=== PATIENT | male | born 1995 | race Caucasian/White ===

== ENCOUNTER 2017-09-20 10:13 | Emergency (ER) | payer MEDICAID ==
[~2017-09-20] VITALS: Ht 170.2 cm; Wt 56.7 kg
[2017-09-20 10:20] VITALS: BP 129/76
[2017-09-20] MEDS ORDERED: cefTRIAXone SOD 1,000 MG VL IM ONE (11:00)
[2017-09-20] MEDS ORDERED: KETOROLAC TROMETH 60MG/2ML VIAL IM ONE (11:00)
== END 2017-09-20 11:10 | disposition home or self-care (01) ==
LOC: ER 10:13
DX: K04.7 Periapical abscess without sinus (principal); F17.210 Nicotine dependence, cigarettes, uncomplicated; R07.0 Pain in throat
CPT/HCPCS: 96372; 99284; J0696; J1885